=== PATIENT | female | born 1975 | race Two or more races ===

== ENCOUNTER 2023-08-19 08:27 | Emergency (ER) | payer SELFPAY ==
[2023-08-19] MEDS ORDERED: Ketorolac 60 MG/2 ML SDV IM ONE (09:10)
== END 2023-08-19 11:34 | disposition home or self-care (01) ==
LOC: JD.ED 08:27
DX: S83.92XA Sprain of unspecified site of left knee, initial encounter (principal); F17.210 Nicotine dependence, cigarettes, uncomplicated; X58.XXXA Exposure to other specified factors, initial encounter; Y93.68 Activity, volleyball (beach) (court)
CPT/HCPCS: 73562; 96372; 99283; J1885

== ENCOUNTER 2024-11-19 09:49 | Emergency (ER) | payer SELFPAY | END 2024-11-19 13:20 | disposition home or self-care (01) | LOC: JD.ED 09:49 | DX: J01.90 Acute sinusitis, unspecified (principal); M54.6 Pain in thoracic spine; F17.200 Nicotine dependence, unspecified, uncomplicated | CPT/HCPCS: 71046; 71046-26; 99283 ==

== ENCOUNTER 2024-12-27 12:05 | Emergency (ER) | payer SELFPAY ==
[2024-12-27] MEDS: cefTRIAXone 2 GM Vial IVPUSH ONE (12:40)
== END 2024-12-27 12:45 | disposition home or self-care (01) ==
LOC: JD.ED 12:05
DX: K08.89 Other specified disorders of teeth and supporting structures (principal); Z79.899 Other long term (current) drug therapy
CPT/HCPCS: 96374; 99283; J0696

== ENCOUNTER 2025-04-27 09:39 | Emergency (ER) | payer SELFPAY ==
[2025-04-27 11:35] LABS: BASOPHILS ABSOLUTE AUTO 0.0 K/mm3 (0.0-0.2); BASOPHILS PERCENT AUTO 0.3 % (0.0-1.0); EOSINOPHILS ABSOLUTE AUTO 0.2 K/mm3 (0.0-0.4); EOSINOPHILS PERCENT AUTO 1.5 % (0.0-6.0); IMMATURE GRAN ABSOLUTE AUTO 0.03 K/mm3 (0.00-0.05); IMMATURE GRAN PERCENT AUTO 0.3 % (0.0-0.4); LYMPHOCYTES ABSOLUTE AUTO 2.1 K/mm3 (1.0-4.8); LYMPHOCYTES PERCENT AUTO 21.0 % (24.0-44.0); MEAN PLATELET VOLUME 10.4 fl (9.4-12.3); MONOCYTES ABSOLUTE AUTO 0.6 K/mm3 (0.0-0.8); MONOCYTES PERCENT AUTO 6.1 % (0.0-8.0); NEUTROPHILS ABSOLUTE AUTO 7.1 K/mm3 (1.8-7.7); NEUTROPHILS PERCENT AUTO 70.8 % (41.0-71.0); NRBC ABSOLUTE 0.00 (0.00-0.02); NRBC PERCENT 0.0 % (0.0-0.2); PLATELET COUNT,PLT 273 K/mm3 (150-400); RED BLOOD CELL COUNT 4.56 M/mm3 (4.10-5.30); WHITE BLOOD CELL COUNT,WBC 9.99 K/mm3 (3.9-11.3)
[2025-04-27] MEDS: Iopamidol 612 MG/ML 100 ML Bottle IVPUSH ONE (11:55)
[2025-04-27] MEDS: Sodium Chloride 0.9% 10 ML Syringe FLUSH PRN (11:55)
[2025-04-27 11:57] LABS: A/G RATIO 0.9 (1-2); ALANINE AMINOTRANSFERASE,ALT 15.0 U/L (14-59); ASPARTATE AMNIOTRANSFERASE,AST 14.0 U/L (15-37); BILIRUBIN TOTAL 0.4 mg/dL (0.2-1.0); BLOOD UREA NITROGEN,BUN 10.0 mg/dL (7-18); CARBON DIOXIDE,CO2 27.0 mEq/L (21-32); CHLORIDE,CL 107.0 mEq/L (98-107); CREATININE 0.7 mg/dL (0.55-1.02); EST CRCL DRUG DOSING (CG) 78.65 mL/min; ESTIMATED GFR 105.0 mL/min (>60); GLUCOSE RANDOM 119.0 mg/dL (70-99); POTASSIUM,K 3.8 mEq/L (3.5-5.1); PROTEIN TOTAL,TP 7.1 g/dl (6.4-8.2); SODIUM,NA 144.0 mEq/L (136-145)
== END 2025-04-27 13:50 | disposition home or self-care (01) ==
LOC: JD.ED 09:39
DX: K61.1 Rectal abscess (principal)
CPT/HCPCS: 36415; 46040; 74177; 80053; 85025; 86140; 99284; Q9967; 99283